=== PATIENT | female | born 1960 | race Caucasian/White ===

== ENCOUNTER 2017-06-29 17:35 | Emergency (ER) | payer OTHER ==
[~2017-06-29] VITALS: Ht 157.5 cm; Wt 75.7 kg
[2017-06-29 17:39] VITALS: BP 117/79
[2017-06-29] MEDS ORDERED: ALBUTEROL SULFATE/IPRATROPIU 3 ML SOL IH STA (17:50)
[2017-06-29] MEDS ORDERED: DEXAMETHASONE 10 MG/ML VIAL IM ONE (19:25)
[2017-06-29 19:44] VITALS: BP 121/82
== END 2017-06-29 19:44 | disposition home or self-care (01) ==
LOC: MED 17:35
DX: J45.909 Unspecified asthma, uncomplicated (principal)
CPT/HCPCS: 71045; 94640; 96372; 99283; J1100; J7620

== ENCOUNTER 2017-11-21 09:36 | Emergency (ER) | payer OTHER ==
[~2017-11-21] VITALS: Ht 157.5 cm; Wt 75.7 kg
[2017-11-21 09:40] VITALS: BP 134/96
[2017-11-21] MEDS ORDERED: NACL 0.9% 1,000 ML IV ONE (10:00)
[2017-11-21] MEDS ORDERED: KETOROLAC 15 MG/ML VIAL IVP ONE (10:15)
[2017-11-21 10:21] LABS: BASOPHILS % (AUTO) 0.7 % (0.0-2.0); EOSINOPHILS # (AUTO) 0.1 K/uL (0-0.4); EOSINOPHILS % (AUTO) 2.5 % (0.0-4.0); HEMATOCRIT 39.2 % (36-48); HEMOGLOBIN 12.7 g/dL (12.0-16.0); LYMPHOCYTES # (AUTO) 1.5 K/uL (2.5-16.5); MEAN CORPUSCULAR HEMOGLOBIN 27 pg (27-31); MEAN CORPUSCULAR HGB CONC 32 g/dL (33-37); MEAN CORPUSCULAR VOLUME 84.4 fL (80-94); MONOCYTES # (AUTO) 0.3 K/uL (0.8-1.0); MONOCYTES % (AUTO) 7.1 % (1.7-9.3); NEUTROPHILS # (AUTO) 2.8 K/uL (1.8-7.7); NEUTROPHILS % (AUTO) 58.7 % (42.2-75.2); PLATELET COUNT (AUTO) 188 K/uL (140-450); RED BLOOD CELL COUNT(AUTO) 4.65 MIL/uL (4.20-5.40); WHITE BLOOD COUNT (AUTO) 4.7 K/uL (4.8-10.8)
[2017-11-21 11:11] LABS: ALBUMIN 3.8 g/dL (3.4-5.0); ANION GAP 9.7 (8-16); CARBON DIOXIDE 27.1 mmol/L (21-32); CREATININE 0.7 mg/dL (0.6-1.3); POTASSIUM 3.8 mmol/L (3.5-5.1); TOTAL BILIRUBIN 0.2 mg/dL (0.0-1.0)
[2017-11-21 11:38] VITALS: BP 139/84
== END 2017-11-21 11:38 | disposition home or self-care (01) ==
LOC: MED 09:36
DX: E83.51 Hypocalcemia (principal); J45.909 Unspecified asthma, uncomplicated
CPT/HCPCS: 36415; 80053; 81002; 81025; 85025; 93005; 96361; 96374; 99285; J1885; J7030

== ENCOUNTER 2018-07-20 19:41 | Emergency (ER) | payer OTHER ==
[~2018-07-20] VITALS: Ht 157.5 cm; Wt 73.9 kg
[2018-07-20 19:46] VITALS: BP 134/78
[2018-07-20] MEDS ORDERED: ALBUTEROL SULFATE/IPRATROPIU 3 ML SOL IH ONE (19:50)
[2018-07-20] MEDS ORDERED: predniSONE 20 MG TAB PO ONE (19:50)
[2018-07-20] MEDS ORDERED: ALBUTEROL 0.083% 2.5 MG/3 ML NEBU INH ONE (19:50)
--- NOTE | 2018-07-20 19:50 | NUR ---
PT TAKEN TO BED 4
--- NOTE | 2018-07-20 20:00 | NUR ---
pt received at this time.alert and awake.respirations unlabored.pt c/o asthmatic symptoms.no dyspnea noted.
--- NOTE | 2018-07-20 20:05 | NUR ---
Respiratory Therapist at bedside for respiratory intervention.
--- NOTE | 2018-07-20 21:19 | NUR ---
Dr. Crocker evaluating patient at bedside.
--- NOTE | 2018-07-20 21:40 | NUR ---
pt discharged home at this time.prescriptions and instructions given; verbalized understanding.
[2018-07-20 21:41] VITALS: BP 124/74
== END 2018-07-20 21:40 | disposition home or self-care (01) ==
LOC: MED 19:41
DX: J45.901 Unspecified asthma with (acute) exacerbation (principal)
CPT/HCPCS: 94640; 99283; J7512; J7613; J7620

== ENCOUNTER 2018-12-28 19:30 | Emergency (ER) | payer OTHER ==
[~2018-12-28] VITALS: Ht 154.9 cm; Wt 87.1 kg
[2018-12-28 19:38] VITALS: BP 152/77
--- NOTE | 2018-12-28 21:37 | NUR ---
PT AMBULATED TO BED 08.
[2018-12-28] MEDS ORDERED: ALBUTEROL 0.083% 2.5 MG/3 ML NEBU INH ONE (21:50)
[2018-12-28] MEDS ORDERED: methylPREDNISolone SS 125 MG/2 ML VIAL IM ONE (21:50)
--- NOTE | 2018-12-28 22:11 | NUR ---
C/O SOB X5 DAYS. PT STATES SHE HAS A HISTORY OF ASTHMA AND HAS BEEN USING HER VENTOLIN INHALER BUT IT IS NOT PROVIDING RELIEF ANYMORE. NO ACCESORY MUSCLE USE NOTED, SPO2 99% RA, RESPIRATIONS EVEN AND UNLABORED. PT SPEAKING CLEAR/COMPLETE SENTENCES. PT HAS A DRY COUGH. DENIES FEVER/N/V OR RECENT ILLNESS. HX: ASTHMA RX: VENTOLIN
[2018-12-28 22:40] VITALS: BP 152/77
--- NOTE | 2018-12-28 22:40 | NUR ---
Patient discharged with v/s stable. Written and verbal after care instructions given and explained. Patient alert, oriented and verbalized understanding of instructions. Ambulatory with steady gait. All questions addressed prior to discharge. ID band removed. Patient advised to follow up with PMD. Rx of PREDNISONE AND ALBUTEROL WAS given. Patient educated on indication of medication including possible reaction and side effects. Opportunity to ask questions provided and answered.
== END 2018-12-28 22:40 | disposition home or self-care (01) ==
LOC: MED 19:30
DX: J45.901 Unspecified asthma with (acute) exacerbation (principal)
CPT/HCPCS: 96372; 99283; J2930; J7613; 94640

== ENCOUNTER 2019-02-02 14:14 | Emergency (ER) | payer OTHER ==
[~2019-02-02] VITALS: Ht 160 cm; Wt 83.6 kg
[2019-02-02 14:55] VITALS: BP 111/68
--- NOTE | 2019-02-02 15:23 | NUR ---
PT TO ER BED 7
--- NOTE | 2019-02-02 15:33 | NUR ---
C/O RIGHT KNEE PAIN , DIFFICULTY AMBULATING WITHOUT PAIN X 2 WK SEEN BY HER PMD and RX IBUPROFEN 600MG; PT STATES THE MOTRIN DOES NOT RELIEVE PAIN ANYMORE. STATES NO XRAYS WERE TAKEN. NO SWELLING OR DISCOLORATION NOTED. +ROM WITH PAIN. +PEDAL PULSE. CAP REFILL < 3 SECONDS. AAOX4. BED IS DWON, LOCKED, BED RAIL X 1, ERMD TO SEE PT. HX---ASTHMA, HTN, HYPERLIPIDEMIA RX--ALBUTEROL, LISINOPRIL, ATORVASTATIN
--- NOTE | 2019-02-02 15:36 | NUR ---
PT BEING TAKEN TO XRAY VIA WHEELCHAIR
[2019-02-02] MEDS ORDERED: KETOROLAC 30 MG/ML VIAL IM ONE (16:20)
--- NOTE | 2019-02-02 16:45 | NUR ---
US AT BEDSIDE
--- NOTE | 2019-02-02 16:56 | NUR ---
US FINISHED AT BEDSIDE
[2019-02-02 17:08] VITALS: BP 103/54
--- NOTE | 2019-02-02 17:08 | NUR ---
Patient discharged with v/s stable. Written and verbal after care instructions given and explained IN [place]. [facility] ALVES AT BEDSIDE FOR TRANSLATION Patient alert, oriented and verbalized understanding of instructions. Ambulatory with R KNEE IMMOBILIZER. All questions addressed prior to discharge. ID band removed. Patient advised to follow up with PMD. Rx of NAPROSYN given. Patient educated on indication of medication including possible reaction and side effects. Opportunity to ask questions provided and answered.
--- NOTE | 2019-02-02 17:08 | NUR ---
KNEE IMMOBILIZER APPLIED BY [facility] EMT
== END 2019-02-02 17:08 | disposition home or self-care (01) ==
LOC: MED 14:14
DX: S83.91XA Sprain of unspecified site of right knee, initial encounter (principal); M17.11 Unilateral primary osteoarthritis, right knee; J45.909 Unspecified asthma, uncomplicated; Z98.890 Other specified postprocedural states; X58.XXXA Exposure to other specified factors, initial encounter; Y93.89 Activity, other specified; Y92.89 Other specified places as the place of occurrence of the external cause; Y99.8 Other external cause status
CPT/HCPCS: 29505; 73562; 93971; 96372; 99284; J1885; Q0092

== ENCOUNTER 2019-05-21 09:37 | Emergency (ER) | payer OTHER ==
[~2019-05-21] VITALS: Ht 154.9 cm; Wt 73.5 kg
[2019-05-21] MEDS ORDERED: methylPREDNISolone SS 125 MG/2 ML VIAL IM ONE (09:40)
[2019-05-21] MEDS ORDERED: ALBUTEROL SULFATE/IPRATROPIU 3 ML SOL IH ONE (09:40)
[2019-05-21] MEDS ORDERED: NACL 0.9% 1,000 ML IV ONE (09:45)
[2019-05-21] MEDS ORDERED: methylPREDNISolone SS 125 MG/2 ML VIAL IVP ONE (09:50)
[2019-05-21 09:52] VITALS: BP 130/52
[2019-05-21] MEDS ORDERED: KETOROLAC 30 MG/ML VIAL IVP ONE (10:05)
[2019-05-21 10:11] LABS: ANION GAP 15.5 (8-16); CARBON DIOXIDE 26.3 mmol/L (21-32); POTASSIUM 3.8 mmol/L (3.5-5.1)
[2019-05-21 10:18] LABS: BASOPHILS % (AUTO) 0.6 % (0.0-2.0); EOSINOPHILS # (AUTO) 0.1 K/uL (0-0.4); EOSINOPHILS % (AUTO) 2.4 % (0.0-4.0); HEMATOCRIT 45.2 % (36-48); HEMOGLOBIN 14.8 g/dL (12.0-16.0); LYMPHOCYTES # (AUTO) 0.9 K/uL (2.5-16.5); LYMPHOCYTES % (AUTO) 30.2 % (20.5-51.1); MEAN CORPUSCULAR HEMOGLOBIN 28 pg (27-31); MEAN CORPUSCULAR HGB CONC 33 g/dL (33-37); MEAN CORPUSCULAR VOLUME 85.1 fL (80-94); MONOCYTES # (AUTO) 0.4 K/uL (0.8-1.0); MONOCYTES % (AUTO) 15.5 % (1.7-9.3); NEUTROPHILS # (AUTO) 1.5 K/uL (1.8-7.7); NEUTROPHILS % (AUTO) 51.3 % (42.2-75.2); PLATELET COUNT (AUTO) 178 K/uL (140-450); RED CELL DISTRIBUTION WIDTH 12.9 % (11.6-13.7); WHITE BLOOD COUNT (AUTO) 2.8 K/uL (4.8-10.8)
[2019-05-21 10:21] LABS: ALBUMIN 4.2 g/dL (3.4-5.0); TOTAL BILIRUBIN 0.6 mg/dL (0.0-1.0)
[2019-05-21] MEDS ORDERED: OSELTAMIVIR PHOSPHATE 75 MG CAP PO ONE (10:30)
[2019-05-21] MEDS ORDERED: ONDANSETRON 4 MG/2 ML VIAL IVP ONE (10:35)
[2019-05-21 10:57] VITALS: BP 105/70
== END 2019-05-21 10:58 | disposition home or self-care (01) ==
LOC: MED 09:37
DX: J45.901 Unspecified asthma with (acute) exacerbation (principal); J10.1 Influenza due to other identified influenza virus with other respiratory manifestations
CPT/HCPCS: 36415; 71045; 80053; 85025; 87804; 94640; 96374; 96375; 99284; J1885; J2405; J2930; J7030; J7620; Q0092